=== PATIENT | female | born 1955 | race Caucasian/White ===

== ENCOUNTER 2018-05-21 08:07 | Outpatient (CLI) | payer MEDICARE, OTHER | END 2018-05-21 08:08 | disposition home or self-care (01) | LOC: BICMAMMO 08:07 | PROVIDERS: ATTEND Family Medicine | DX: Z12.31 Encounter for screening mammogram for malignant neoplasm of breast (principal); R92.1 Mammographic calcification found on diagnostic imaging of breast | CPT/HCPCS: 77063; 77067 ==

== ENCOUNTER 2019-05-25 07:36 | Outpatient (CLI) | payer MEDICARE, OTHER ==
--- NOTE | 2019-05-25 08:16 | MMO ---
Bilateral MAMMO Bilat Screen [facility]. CLINICAL HISTORY: Patient is 64 years old and is seen for screening. The patient has no family history of breast cancer. The patient has no personal history of cancer. VIEWS: The views performed were: bilateral craniocaudal with tomosynthesis and bilateral mediolateral oblique with tomosynthesis. FILMS COMPARED: The present examination has been compared to prior imaging studies performed at [facility] on 10/09/2016, and at [facility] on 05/21/2018. This study has been interpreted with the assistance of computer-aided detection. MAMMOGRAM FINDINGS: There are scattered fibroglandular densities. There are stable benign appearing calcifications seen in both breasts. There are no suspicious masses, suspicious calcifications, or new areas of architectural distortion. IMPRESSION: THERE IS NO MAMMOGRAPHIC EVIDENCE OF MALIGNANCY. A ROUTINE FOLLOW-UP MAMMOGRAM IN 1 YEAR IS RECOMMENDED. THE RESULTS OF THIS EXAM WERE SENT TO THE PATIENT. ACR BI-RADS Category 2 - Benign finding MAMMOGRAPHY NOTE: 1. A negative mammogram report should not delay a biopsy if a dominant of clinically suspicious mass is present. 2. Approximately 10% to 15% of breast cancers are not detected by mammography. 3. Adenosis and dense breasts may obscure an underlying neoplasm. Reported by: DAPHNE PACHECO MD Electonically Signed: [id number]
--- NOTE | 2019-05-25 08:30 | BD ---
Exam: Bilateral renal ultrasound HISTORY: Reevaluate hydronephrotic COMPARISON: None FINDINGS: Right kidney: Normal cortical echotexture. No hydronephrosis. Questionable nonobstructing 1.1 cm calc ulus in the lower pole. Right kidney measurements: 12.3 x 7.1 x 7.1 cm. Left kidney: Normal cortical echotexture. No hydronephrosis Left kidney measurements 12.3 x 7.3 x 6.1 cm. Urinary bladder: Normal mucosa. IMPRESSION: No hydronephrosis.
== END 2019-05-25 07:37 | disposition home or self-care (01) ==
LOC: BICMAMMO 07:36
PROVIDERS: ATTEND Family Medicine
DX: Z12.31 Encounter for screening mammogram for malignant neoplasm of breast (principal); Z13.820 Encounter for screening for osteoporosis; Z78.0 Asymptomatic menopausal state
CPT/HCPCS: 77063; 77067; 77080

== ENCOUNTER 2019-08-30 06:17 | Observation (INO) | payer MEDICARE, OTHER ==
[2019-08-30 06:48] LABS: #Basophils 0.1 thou/uL (0.0-0.2); #Eosinphils 0.1 thou/uL (0.0-0.7); #Lymphocytes 1.7 thou/uL (1.20-3.40); #Monocytes 0.5 thou/uL (0.11-0.59); #Neutrophils 3.5 thou/uL (1.40-6.50); %Basophils 1.4 % (0.0-1.0); %Eosinophils 2.5 % (0.0-10.0); %Lymphocytes 28.8 % (21.0-51.0); %Monocytes 8.2 % (0.0-10.0); %Neutrophils 59.2 % (42.0-75.0); Hemoglobin 13.6 g/dL (12.0-16.0); Mean Corpuscular HGB CONC 33.7 g/dL (32.0-36.0); Mean Corpuscular Hemoglobin 28.5 pg (27.0-31.0); Mean Corpuscular Volume 84.6 fL (78.0-98.0); Mean Platelet Volume 7.3 fL (7.4-10.4); Platelet Count 243 thou/uL (130-400); RBC Distribution Width 12.7 % (11.5-14.5); Red Blood Cell (RBC) Count 4.77 mill/uL (4.20-5.40)
[2019-08-30 07:03] LABS: ALT (SGPT) 14 U/L (8-55); AST (SGOT) 19 U/L (5-34); Albumin 3.9 g/dL (3.4-4.8); Alkaline Phosphatase 82 U/L (40-110); Anion Gap 13 mmol/L (10-20); BUN (Urea Nitrogen) 13 mg/dL (9.8-20.1); Bilirubin, Total 0.6 mg/dL (0.2-1.2); Calc. Creatinine Clearance 0 mL/min (70-130); Calcium 9.3 mg/dL (7.8-10.44); Carbon Dioxide 21 mmol/L (23-31); Chloride 109 mmol/L (98-107); Estimated GFR-MDRD 76; Globulin 3.2 g/dL (2.4-3.5); Glucose 98 mg/dL (80-115); Lipase 41 U/L (8-78); Potassium 3.6 mmol/L (3.5-5.1); Protein, Total 7.1 g/dL (6.0-8.3); Sodium 139 mmol/L (136-145)
[2019-08-30] MEDS ORDERED: Nitroglycerin 2% Ointment 1 INCH/1 GM Packet ONE (07:23)
--- NOTE | 2019-08-30 07:29 | RAD ---
Chest one view HISTORY: Chest pain. FINDINGS: No comparison. Cardiac silhouette is magnified by projection. Pulmonary vasculature is unremarkable. Mediastinum is midline. No lobar consolidation or evidence of pneumothorax. customer support advisor leads overlie the chest. IMPRESSION: No active cardiopulmonary abnormalities are demonstrated.
[2019-08-30] MEDS ORDERED: Dextrose 5 % And 0.9 % NaCl 1,000 ML IV SCH (09:00)
[2019-08-30 10:07] VITALS: BP 137/65; TEMP 98.2; BMI 34.7
[2019-08-30] MEDS ORDERED: Guaifenesin DM 100-10/5 ML UDCUP PO PRN (10:13)
[2019-08-30] MEDS ORDERED: Bisacodyl 10 MG SUPP PR PRN (10:13)
[2019-08-30] MEDS ORDERED: Senokot S 8.6-50 MG TAB PO PRN (10:13)
[2019-08-30] MEDS ORDERED: Ondansetron PF 4 MG/2 ML Vial IVP PRN (10:13)
[2019-08-30] MEDS ORDERED: Acetaminophen 325 MG TAB PO PRN (10:13)
[2019-08-30] MEDS ORDERED: Lorazepam 1 MG TAB PO PRN (11:34)
[2019-08-30] MEDS ORDERED: Lorazepam 2 MG/ML VIAL SLOW IVP SCH (11:45)
[2019-08-30] MEDS ORDERED: ADENOSINE 60 MG/20 ML VIAL ONE (12:00)
--- NOTE | 2019-08-30 12:45 | NM ---
Exam: Nuclear medicine cardiac SPECT with EF and wall motion, stress only HISTORY: Chest pain Patient is injected with 31.1 mCi technetium 99m sestamibi intravenously for stress images. This is a adenosine sestamibi study. Multiple SPECT images including short axis, vertical long axis, and horizontal long axis demonstrates no evidence for infarct or ischemia. LHR 0.39 EDV 57 mL Ejection fraction 85% Wall motion is normal. IMPRESSION: Unremarkable stress only cardiac SPECT with EF and wall motion.
--- NOTE | 2019-08-30 16:36 | SS ---
DATE OF ADMISSION: 08/30/2019 DATE OF DISCHARGE: 08/30/2019 REASON FOR ADMISSION: Chest pain. HISTORY OF PRESENT ILLNESS: The patient gives history of waking up around 5:15 a.m. and was trying to watch television. She was also trying to play a game on her cellphone when she suddenly developed retrosternal chest pain. This was 10/10 in intensity with no radiation. The pain was unrelenting for nearly 20 minutes. EMS was summoned and they gave her nitroglycerin, which seemed to ease her, and by the time, she arrived in ER emergency room, the pain completely resolved. She has had some postnasal discharge, which is not new for her due to chronic sinusitis. No complaints of palpitations, PND, or orthopnea. No prior cardiac workup including stress test done in the past. No history of fever, cough, or expectoration. PAST MEDICAL AND SURGICAL HISTORY: History of primary biliary cholangitis and follows up with Dr. Brooks, dyslipidemia, osteopenia, tonsillectomy, prior history of dilatation and curettage, cholecystectomy, and obesity. Prior colonoscopy showed no malignancy, but had mild hemorrhoids. CURRENT MEDICATION: 1. Ursodiol 1200 mg p.o. nightly. 2. Crestor 20 mg p.o. nightly. 3. Vascepa two capsules p.o. twice daily. 4. Calcium carbonate 600 mg twice daily. 5. Lumigan eye drops as before. 6. Alendronate 35 mg p.o. once weekly. ALLERGIES: ALLERGIC TO ASPIRIN, WHICH CAUSES HIVES. PERSONAL HISTORY: Does not abuse alcohol or drugs. No history of smoking. She lives with her and is retired. FAMILY HISTORY: Mother of natural causes in her 90s. Father in his 70s and might have had massive MN, which she does not know for sure. CODE STATUS: Full. Power of disability attorney is her . REVIEW OF SYSTEMS: CONSTITUTIONAL: Negative for weight loss or gain, ability to conduct usual activities. SKIN: Negative for rash, itching. EYES: Negative for double vision, pain. ENT/MOUTH: Negative for nose bleeding, neck stiffness, pain, tenderness. CARDIOVASCULAR: Negative for palpitations, dyspnea on exertion, orthopnea. RESPIRATORY: Negative for shortness of breath, wheezing, cough, hemoptysis, fever or night sweats. GASTROINTESTINAL: Negative for poor appetite, abdominal pain, heartburn, nausea, vomiting, constipation, or diarrhea. GENITOURINARY: Negative for urgency, frequency, dysuria, nocturia. MUSCULOSKELETAL: Negative for pain, swelling. NEUROLOGIC/PSYCHIATRIC: Negative for anxiety, depression. ALLERGY/IMMUNOLOGIC: Negative for skin rash, bleeding tendency. PHYSICAL EXAMINATION: GENERAL: The patient is a 64-year-old female, who is currently not in any acute distress. VITAL SIGNS: Blood pressure 148/86, pulse 74 per minute, respiratory rate 20 per minute, temperature 98.4 degrees Fahrenheit, and saturating 97% on room air. NECK: Supple. No elevated JVD. HEENT: Eyes; extraocular muscles intact. Pupils reacting to light. Oral cavity, mucous membranes are moist. No exudates or congestion. CARDIOVASCULAR SYSTEM: S1-S2 heard. Regular rhythm. RESPIRATORY SYSTEM: Air entry 2+ bilateral. No rales or rhonchi. ABDOMEN: Soft. Bowel sounds heard. No tenderness, rigidity, or guarding. EXTREMITIES: No peripheral edema or calf tenderness. VASCULAR SYSTEM: Peripheral pulses 2+ bilateral. No ischemic ulcerations or gangrene. CENTRAL NERVOUS SYSTEM: No gross focal deficits noted. The patient is alert, awake, and oriented well. PSYCHIATRIC SYSTEM: The patient's mood is euthymic. No hallucinations or delusions. LABORATORY DATA: EKG done shows sinus rhythm at 66 beats per minute. No gross ST-T wave changes. White count of 6, H and H of 13 and 40, and platelet count 243 with 59% neutrophils. Electrolytes stable. BUN 13 and creatinine 0.7. Troponin x2 negative. Liver enzymes within normal limits. Albumin is 3.9. Lipase is 41. IMAGING STUDIES: Chest x-ray done shows no acute cardiopulmonary process. Nuclear stress test done showed normal ejection fraction and wall motion, stress only, nuclear stress test was unremarkable. There was no evidence of infarct or ischemia. Ejection fraction of around 85%. CLINICAL IMPRESSION AND PLAN: The patient will be shortly discharged home. The patient initially came in with complaints of chest pain. She has had 2 sets of troponin and a nuclear stress test done, all of which has not shown any signs of ischemia. Her chest x-ray does not show any signs of infiltrate. She will be given Protonix 40 mg daily for a total of 2 weeks. She needs to follow up with her primary care physician, Dr. Tovar, in a week. She is otherwise hemodynamically stable and will be shortly discharged home. Please note, this is a same day observation and discharge summary. Job ID: [id number]
[2019-08-30] MEDS ORDERED: Icosapent Ethyl 1 GM CAPSULE PO SCH (21:00)
[2019-08-30] MEDS ORDERED: Rosuvastatin 20 MG TAB PO SCH (21:00)
[2019-08-30] MEDS ORDERED: Ursodiol 300 MG CAP PO SCH (21:00)
[2019-08-30] MEDS ORDERED: Non-Formulary Item 1 EACH (Bimatoprost [Lumigan] 1 DROP) EA EYE SCH (21:00)
[2019-08-31] MEDS ORDERED: Enoxaparin Sodium 40 MG/0.4 ML SYRINGE SC SCH (09:00)
--- NOTE | 2019-09-05 13:14 | EKG ---
Test Reason : Blood Pressure : / mmHG Vent. Rate : 066 BPM Atrial Rate : 066 BPM P-R Int : 230 ms QRS Dur : 076 ms QT Int : 410 ms P-R-T Axes : 031 -29 007 degrees QTc Int : 429 ms Sinus rhythm with 1st degree A-V block Moderate voltage criteria for LVH, may be normal variant Borderline ECG Confirmed by ISAÍAS VORA ([id number]), editor newspaper [place] TRIVEDI ([id number]) on 09/05/2019 1:13:32 PM Referred By: Confirmed By:ISAÍAS VORA
== END 2019-08-30 14:10 | disposition home or self-care (01) ==
LOC: ERS 06:17 → 2SW 07:29
PROVIDERS: ADMIT Internal Medicine; ATTEND Internal Medicine
DX: R07.9 Chest pain, unspecified (principal); E78.5 Hyperlipidemia, unspecified; M85.80 Other specified disorders of bone density and structure, unspecified site; Z90.89 Acquired absence of other organs; Z98.890 Other specified postprocedural states; Z79.899 Other long term (current) drug therapy; Z88.6 Allergy status to analgesic agent
CPT/HCPCS: 71045; 78452; 80053; 83690; 84484 ×2; 85025; 93005; 93017; 94760; 96374; 99285; A9500; G0378 ×2; 36415; J0153; J2060

== ENCOUNTER 2019-12-04 23:07 | Emergency (ER) | payer MEDICARE, OTHER ==
[2019-12-04 23:49] LABS: #Basophils 0.1 thou/uL (0.0-0.2); #Eosinphils 0.1 thou/uL (0.0-0.7); #Lymphocytes 2.7 thou/uL (1.20-3.40); #Monocytes 0.9 thou/uL (0.11-0.59); #Neutrophils 4.2 thou/uL (1.40-6.50); %Basophils 0.8 % (0.0-1.0); %Eosinophils 1.4 % (0.0-10.0); %Lymphocytes 33.7 % (21.0-51.0); %Monocytes 11.1 % (0.0-10.0); %Neutrophils 52.9 % (42.0-75.0); Hemoglobin 13.4 g/dL (12.0-16.0); Mean Corpuscular Hemoglobin 27.2 pg (27.0-31.0); Mean Corpuscular Volume 84.9 fL (78.0-98.0); Mean Platelet Volume 7.8 fL (7.4-10.4); Platelet Count 233 thou/uL (130-400); RBC Distribution Width 13.5 % (11.5-14.5); Red Blood Cell (RBC) Count 4.93 mill/uL (4.20-5.40)
[2019-12-05 00:14] LABS: ALT (SGPT) 20 U/L (8-55); AST (SGOT) 29 U/L (5-34); Albumin 3.9 g/dL (3.4-4.8); Alkaline Phosphatase 81 U/L (40-110); Anion Gap 16 mmol/L (10-20); BUN (Urea Nitrogen) 13 mg/dL (9.8-20.1); Bilirubin, Total 0.6 mg/dL (0.2-1.2); Calc. Creatinine Clearance 0 mL/min (70-130); Carbon Dioxide 19 mmol/L (23-31); Chloride 108 mmol/L (98-107); Estimated GFR-MDRD 71; Globulin 3.4 g/dL (2.4-3.5); Glucose 125 mg/dL (80-115); Potassium 4.1 mmol/L (3.5-5.1); Protein, Total 7.3 g/dL (6.0-8.3); Sodium 139 mmol/L (136-145)
[2019-12-05] MEDS ORDERED: Lidocaine Viscous Sol 2% 15 ml UD Cup ONE (00:50)
[2019-12-05] MEDS ORDERED: Mag-Al 1200 mg/1200 mg/30 ML UDCUP ONE (00:50)
--- NOTE | 2019-12-05 07:36 | RAD ---
PORTABLE CHEST: Date: 12/04/2019 PROVIDED CLINICAL HISTORY: Chest pain. FINDINGS: Comparison with 08/30/2019. The cardiac and mediastinal silhouette is unchanged in appearance. No focal consolidation, pleural fl uid, or pneumothorax apparent. IMPRESSION: No evidence for an acute cardiopulmonary process. POS: AYESHA
--- NOTE | 2019-12-05 15:17 | EKG ---
Test Reason : EMERGENCY Blood Pressure : / mmHG Vent. Rate : 068 BPM Atrial Rate : 068 BPM P-R Int : 312 ms QRS Dur : 076 ms QT Int : 412 ms P-R-T Axes : 033 -27 002 degrees QTc Int : 438 ms Sinus rhythm with 1st degree A-V block Minimal voltage criteria for LVH, may be normal variant Borderline ECG Confirmed by KARMEN HAWLEY M.D. ([id number]), purchasing expeditor [place] TRIVEDI ([id number]) on 12/05/2019 3:17:01 PM Referred By: Confirmed By:KARMEN HAWLEY M.D.
== END 2019-12-05 02:30 | disposition home or self-care (01) ==
LOC: ERS 23:07
DX: R07.9 Chest pain, unspecified (principal)
CPT/HCPCS: 36415; 71045; 80053; 84484; 85025; 93005

== ENCOUNTER 2020-01-20 02:03 | Emergency (ER) | payer MEDICARE, OTHER ==
[2020-01-20 02:30] LABS: #Eosinphils 0.1 thou/uL (0.0-0.7); #Lymphocytes 2.5 thou/uL (1.20-3.40); #Monocytes 0.6 thou/uL (0.11-0.59); #Neutrophils 4.7 thou/uL (1.40-6.50); %Basophils 0.5 % (0.0-1.0); %Eosinophils 1.3 % (0.0-10.0); %Monocytes 7.8 % (0.0-10.0); %Neutrophils 59.4 % (42.0-75.0); Hemoglobin 13.7 g/dL (12.0-16.0); Mean Corpuscular HGB CONC 32.8 g/dL (32.0-36.0); Mean Corpuscular Hemoglobin 27.6 pg (27.0-31.0); Mean Platelet Volume 7.2 fL (7.4-10.4); Platelet Count 261 thou/uL (130-400); RBC Distribution Width 13.3 % (11.5-14.5); Red Blood Cell (RBC) Count 4.97 mill/uL (4.20-5.40); White Blood Cell (WBC) Count 7.9 thou/uL (4.8-10.8)
[2020-01-20 02:50] LABS: ALT (SGPT) 17 U/L (8-55); AST (SGOT) 20 U/L (5-34); Albumin 4.1 g/dL (3.4-4.8); Alkaline Phosphatase 96 U/L (40-110); Anion Gap 14 mmol/L (10-20); BUN (Urea Nitrogen) 14 mg/dL (9.8-20.1); Bilirubin, Total 0.8 mg/dL (0.2-1.2); Calc. Creatinine Clearance 0 mL/min (70-130); Calcium 10.5 mg/dL (7.8-10.44); Carbon Dioxide 24 mmol/L (23-31); Chloride 106 mmol/L (98-107); Estimated GFR-MDRD 64; Globulin 3.6 g/dL (2.4-3.5); Glucose 121 mg/dL (80-115); Lipase 40 U/L (8-78); Potassium 3.5 mmol/L (3.5-5.1); Protein, Total 7.7 g/dL (6.0-8.3); Sodium 140 mmol/L (136-145)
[2020-01-20 04:22] LABS: Troponin I 0.019 ng/mL (< 0.028)
[2020-01-20 05:30] LABS: Troponin I 0.016 ng/mL (< 0.028)
--- NOTE | 2020-01-20 07:43 | RAD ---
EXAM: Single view of the chest HISTORY: Chest pain COMPARISON: 12/04/2019 FINDINGS: Single view of the chest shows a normal sized cardiomediastinal silhouette. There is no gonsalo dence of consolidation, mass, or pleural effusion. The bones are unremarkable IMPRESSION: No evidence of acute cardiopulmonary disease
== END 2020-01-20 05:47 | disposition home or self-care (01) ==
LOC: ERS 02:03
DX: R07.89 Other chest pain (principal); E83.52 Hypercalcemia; K21.9 Gastro-esophageal reflux disease without esophagitis; Z79.899 Other long term (current) drug therapy
CPT/HCPCS: 36415; 71045; 80053; 83690; 84484; 85025; 93005

== ENCOUNTER 2020-11-27 08:59 | Emergency (ER) | payer MEDICARE, OTHER ==
[2020-11-27] MEDS ORDERED: Cyclobenzaprine 10 MG TAB ONE (09:40)
== END 2020-11-27 09:45 | disposition home or self-care (01) ==
LOC: ERS 08:59
DX: M54.5 Low back pain (principal); K21.9 Gastro-esophageal reflux disease without esophagitis; Z79.899 Other long term (current) drug therapy
CPT/HCPCS: 99283

== ENCOUNTER 2021-07-04 08:20 | Outpatient (CLI) | payer MEDICARE, OTHER | END 2021-07-04 08:21 | disposition home or self-care (01) | LOC: BICMAMMO 08:20 | PROVIDERS: ATTEND Family Medicine | DX: Z12.31 Encounter for screening mammogram for malignant neoplasm of breast (principal); N95.9 Unspecified menopausal and perimenopausal disorder; Z13.820 Encounter for screening for osteoporosis; M85.89 Other specified disorders of bone density and structure, multiple sites | CPT/HCPCS: 77063; 77067; 77080 ==

== ENCOUNTER 2022-03-26 22:30 | Inpatient (IN) | payer MEDICARE, OTHER ==
[~2022-03-26 22:30] MED LIST: Iopamidol 370 76% 100 ML VIAL ONE
[2022-03-26 23:12] LABS: #Basophils 0.1 thou/uL (0.0-0.2); #Eosinphils 0.2 thou/uL (0.0-0.7); #Lymphocytes 2.2 thou/uL (1.20-3.40); #Neutrophils 7.6 thou/uL (1.40-6.50); %Basophils 0.5 % (0.0-1.0); %Eosinophils 1.6 % (0.0-10.0); %Monocytes 9.1 % (0.0-10.0); %Neutrophils 68.8 % (42.0-75.0); Hemoglobin 13.7 g/dL (12.0-16.0); Mean Corpuscular HGB CONC 32.7 g/dL (32.0-36.0); Mean Corpuscular Hemoglobin 28.4 pg (27.0-31.0); Mean Corpuscular Volume 86.9 fL (78.0-98.0); Mean Platelet Volume 7.4 fL (7.4-10.4); Platelet Count 279 thou/uL (130-400); RBC Distribution Width 13.4 % (11.5-14.5); Red Blood Cell (RBC) Count 4.81 mill/uL (4.20-5.40)
[2022-03-26 23:26] LABS: ALT (SGPT) 16 U/L (8-55); AST (SGOT) 20 U/L (5-34); Alkaline Phosphatase 98 U/L (40-110); Anion Gap 13 mmol/L (10-20); BUN (Urea Nitrogen) 14 mg/dL (9.8-20.1); Bilirubin, Total 0.8 mg/dL (0.2-1.2); Calc. Creatinine Clearance 0 mL/min (70-130); Carbon Dioxide 22 mmol/L (23-31); Chloride 107 mmol/L (98-107); Estimated GFR 89; Globulin 3.2 g/dL (2.4-3.5); Glucose 150 mg/dL (80-115); Potassium 3.5 mmol/L (3.5-5.1); Protein, Total 7.2 g/dL (5.8-8.1); Sodium 138 mmol/L (136-145)
[2022-03-27] MEDS ORDERED: Ondansetron PF 4 MG/2 ML Vial ONE (01:15)
[2022-03-27 03:14] LABS: Troponin I 0.013 ng/mL (< 0.028)
[2022-03-27] MEDS ORDERED: Ondansetron ODT 4 MG TAB PO PRN (03:47)
[2022-03-27] MEDS ORDERED: Acetaminophen 650 MG Suppository PR PRN (03:47)
[2022-03-27] MEDS ORDERED: Ondansetron PF 4 MG/2 ML Vial IVP PRN (03:47)
[2022-03-27] MEDS ORDERED: Acetaminophen 325 MG TAB PO PRN (03:47)
[2022-03-27 04:00] LABS: SARS-CoV-2 NAA Rapid Test Not Detected (NotDetected)
[2022-03-27] MEDS ORDERED: Electrolyte Replacement Protocol 1 EACH FS SCH (04:15)
[2022-03-27 04:29] LABS: Magnesium 2.1 mg/dL (1.6-2.6)
[2022-03-27 06:16] LABS: Bilirubin Negative (Negative); Blood, Urine Negative (Negative); Clarity Turbid (Clear); Glucose, Urine (Dipstick) Normal (Negative); Ketone, Urine Negative (Negative); Leukocyte Negative Leu/uL (Negative); Nitrite 1+ (Negative); Protein, Urine (Dipstick) Negative (Neg-Trace); RBC/HPF 0-3 HPF (0-3); Specific Gravity, Urine 1.039 (1.002-1.036); Squamous Epithelial 0-3 HPF (0-3); Urobilinogen Normal mg/dL (Less than 2)
[2022-03-27 06:17] LABS: Bacteria/HPF 3+ HPF (None Seen)
[2022-03-27 07:47] LABS: Troponin I Less than 0.010 ng/mL (< 0.028)
[2022-03-27] MEDS ORDERED: Potassium Chloride 20 MEQ TAB PO SCH (08:00)
[2022-03-27] MEDS ORDERED: Potassium Chloride 20 MEQ TAB ONE (08:32)
[2022-03-27] MEDS ORDERED: cefTRIAXone\\ROCEPHIN 1 GM VIAL ONE (08:32)
[2022-03-27] MEDS: cefTRIAXone\\ROCEPHIN 1 GM in Sodium Chloride 0.9% 100 ML IVPB SCH (08:41)
[2022-03-27 10:17] LABS: #Eosinphils 0.2 thou/uL (0.0-0.7); #Lymphocytes 1.5 thou/uL (1.20-3.40); #Monocytes 0.5 thou/uL (0.11-0.59); #Neutrophils 8.4 thou/uL (1.40-6.50); %Basophils 0.2 % (0.0-1.0); %Eosinophils 1.4 % (0.0-10.0); %Lymphocytes 14.2 % (21.0-51.0); %Monocytes 4.4 % (0.0-10.0); %Neutrophils 79.8 % (42.0-75.0); Hemoglobin 14.8 g/dL (12.0-16.0); Mean Corpuscular HGB CONC 32.4 g/dL (32.0-36.0); Mean Corpuscular Volume 86.6 fL (78.0-98.0); Mean Platelet Volume 7.5 fL (7.4-10.4); Platelet Count 239 thou/uL (130-400); RBC Distribution Width 13.4 % (11.5-14.5); Red Blood Cell (RBC) Count 5.29 mill/uL (4.20-5.40); White Blood Cell (WBC) Count 10.5 thou/uL (4.8-10.8)
[2022-03-27 16:13] VITALS: BMI 34.4
[2022-03-27] MEDS: Ursodiol 300 MG CAP PO SCH (18:01)
[2022-03-27] MEDS: Rosuvastatin 20 MG TAB PO SCH (20:24)
[2022-03-28 05:18] LABS: Anion Gap 11 mmol/L (10-20); BUN (Urea Nitrogen) 13 mg/dL (9.8-20.1); Calc. Creatinine Clearance 109 mL/min (70-130); Calcium 9.5 mg/dL (7.8-10.44); Carbon Dioxide 23 mmol/L (23-31); Chloride 109 mmol/L (98-107); Estimated GFR 83; Glucose 95 mg/dL (80-115); Sodium 139 mmol/L (136-145)
[2022-03-28 05:27] LABS: #Basophils 0.1 thou/uL (0.0-0.2); #Eosinphils 0.1 thou/uL (0.0-0.7); #Lymphocytes 1.9 thou/uL (1.20-3.40); #Monocytes 0.4 thou/uL (0.11-0.59); #Neutrophils 3.3 thou/uL (1.40-6.50); %Basophils 0.9 % (0.0-1.0); %Eosinophils 2.2 % (0.0-10.0); %Lymphocytes 32.4 % (21.0-51.0); %Neutrophils 57.6 % (42.0-75.0); Mean Corpuscular HGB CONC 32.3 g/dL (32.0-36.0); Mean Corpuscular Hemoglobin 28.4 pg (27.0-31.0); Mean Corpuscular Volume 87.9 fL (78.0-98.0); Mean Platelet Volume 7.3 fL (7.4-10.4); Platelet Count 226 thou/uL (130-400); RBC Distribution Width 13.4 % (11.5-14.5); Red Blood Cell (RBC) Count 4.59 mill/uL (4.20-5.40); White Blood Cell (WBC) Count 5.8 thou/uL (4.8-10.8)
[2022-03-28] MEDS: cefTRIAXone\\ROCEPHIN 1 GM in Sodium Chloride 0.9% 100 ML IVPB SCH (08:29)
[2022-03-28] MEDS: Calcium Carbonate 600 MG + Vit D TAB PO SCH (08:29)
[2022-03-28] MEDS: Sodium Chloride 0.9% 1,000 ML IV SCH (18:34)
[2022-03-28] MEDS: Ursodiol 300 MG CAP PO SCH (18:34)
[2022-03-28] MEDS ORDERED: Enoxaparin Sodium 40 MG/0.4 ML SYRINGE SC SCH (21:00)
[2022-03-28] MEDS: Famotidine 20 MG TAB PO SCH (22:09)
[2022-03-28] MEDS: Rosuvastatin 20 MG TAB PO SCH (22:09)
[2022-03-29 05:21] LABS: #Eosinphils 0.2 thou/uL (0.0-0.7); #Lymphocytes 2.2 thou/uL (1.20-3.40); #Monocytes 0.5 thou/uL (0.11-0.59); #Neutrophils 2.7 thou/uL (1.40-6.50); %Basophils 0.8 % (0.0-1.0); %Eosinophils 2.7 % (0.0-10.0); %Lymphocytes 39.6 % (21.0-51.0); %Monocytes 8.4 % (0.0-10.0); %Neutrophils 48.5 % (42.0-75.0); Mean Corpuscular HGB CONC 32.6 g/dL (32.0-36.0); Mean Corpuscular Hemoglobin 28.4 pg (27.0-31.0); Mean Platelet Volume 7.3 fL (7.4-10.4); Platelet Count 227 thou/uL (130-400); RBC Distribution Width 13.3 % (11.5-14.5); Red Blood Cell (RBC) Count 4.57 mill/uL (4.20-5.40); White Blood Cell (WBC) Count 5.5 thou/uL (4.8-10.8)
[2022-03-29 05:32] LABS: ALT (SGPT) 11 U/L (8-55); AST (SGOT) 18 U/L (5-34); Albumin 3.8 g/dL (3.4-4.8); Alkaline Phosphatase 88 U/L (40-110); Anion Gap 11 mmol/L (10-20); BUN (Urea Nitrogen) 14 mg/dL (9.8-20.1); Bilirubin, Total 0.7 mg/dL (0.2-1.2); Calc. Creatinine Clearance 116 mL/min (70-130); Calcium 9.5 mg/dL (7.8-10.44); Carbon Dioxide 22 mmol/L (23-31); Chloride 109 mmol/L (98-107); Estimated GFR 90; Globulin 3.2 g/dL (2.4-3.5); Glucose 90 mg/dL (80-115); Magnesium 2.2 mg/dL (1.6-2.6); Phosphorus 3.6 mg/dL (2.3-4.7); Potassium 3.6 mmol/L (3.5-5.1); Sodium 138 mmol/L (136-145)
[2022-03-29] MEDS: cefTRIAXone\\ROCEPHIN 1 GM in Sodium Chloride 0.9% 100 ML IVPB SCH (08:54)
[2022-03-29] MEDS: Calcium Carbonate 600 MG + Vit D TAB PO SCH (08:54)
[2022-03-29] MEDS: Famotidine 20 MG TAB PO SCH (08:54)
[2022-03-29 11:44] VITALS: TEMP 97.7
[2022-03-29 11:46] VITALS: BP 107/54
[2022-03-29] MEDS: Sodium Chloride 0.9% 1,000 ML IV SCH (12:27)
== END 2022-03-29 12:50 | disposition home or self-care (01) | DRG 312 ==
LOC: ERS 22:30 → ERHOLD 03-27 01:54 → 2SW 03-27 15:29 → OBSVTOIN 03-29 11:56
PROVIDERS: ADMIT Student in an Organized Health Care Education/Training Program; ATTEND Internal Medicine
DX: R55 Syncope and collapse (principal); N39.0 Urinary tract infection, site not specified; R00.1 Bradycardia, unspecified; Z20.822 Contact with and (suspected) exposure to COVID-19; K21.9 Gastro-esophageal reflux disease without esophagitis; I44.0 Atrioventricular block, first degree; K74.3 Primary biliary cirrhosis; K59.00 Constipation, unspecified; E78.5 Hyperlipidemia, unspecified; Z88.6 Allergy status to analgesic agent; Z79.899 Other long term (current) drug therapy; Z90.89 Acquired absence of other organs
CPT/HCPCS: 36415; 70450; 71045; 74177; 80048; 80053; 81003; 81015; 83735; 84100; 84484; 85025; 93005; 93306; 93880; 96361; 96374; 96375; 96376; G0378; J0696; J2405; J3490; J7050; Q9967; U0002

== ENCOUNTER 2024-06-20 10:19 | Observation (INO) | payer MEDICARE, OTHER ==
[2024-06-20 10:44] LABS: #Basophils 0.06 10x3/uL (0.0-0.2); %Basophils 0.8 % (0.0-1.0); %Eosinophils 1.6 % (0.0-10.0); %Lymphocytes 24.1 % (21.0-51.0); Hematocrit 38.8 % (36.0-47.0); Hemoglobin 12.9 g/dL (12.0-16.0); Mean Corpuscular HGB CONC 33.2 g/dL (32.0-36.0); Mean Corpuscular Hemoglobin 27.1 pg (27.0-31.0); Mean Corpuscular Volume 81.5 fL (78.0-98.0); Mean Platelet Volume 9.3 fL (7.4-10.4); Platelet Count 292 10x3/uL (130-400); RBC Distribution Width 14.3 % (11.5-14.5); Red Blood Cell (RBC) Count 4.76 mill/uL (4.20-5.40)
[2024-06-20 11:08] LABS: ALT (SGPT) 19 U/L (8-55); AST (SGOT) 25 U/L (5-34); Albumin 3.5 g/dL (3.4-4.8); Alkaline Phosphatase 116 U/L (40-110); Anion Gap 14 mmol/L (10-20); BUN (Urea Nitrogen) 12 mg/dL (9.8-20.1); Bilirubin, Total 0.7 mg/dL (0.2-1.2); Calc. Creatinine Clearance 0 mL/min (70-130); Calcium 9.2 mg/dL (7.8-10.44); Carbon Dioxide 18 mmol/L (23-31); Chloride 109 mmol/L (98-107); Estimated GFR 89; Globulin 3.7 g/dL (2.4-3.5); Glucose 128 mg/dL (83-110); Magnesium 2.3 mg/dL (1.6-2.6); Potassium 3.5 mmol/L (3.5-5.1); Protein, Total 7.2 g/dL (5.8-8.1); Sodium 137 mmol/L (136-145)
[2024-06-20 11:32] LABS: Troponin I Less than 0.010 ng/mL (< 0.028)
[2024-06-20] MEDS ORDERED: Acetaminophen 325 MG TAB PO PRN (13:24)
[2024-06-20] MEDS ORDERED: Senokot S 8.6-50 MG TAB PO PRN (13:24)
[2024-06-20 14:42] VITALS: BMI 34.7
[2024-06-20 18:57] LABS: Bacteria/HPF 3+ HPF (None Seen); Bilirubin Negative (Negative); Blood, Urine Negative (Negative); CAUTI Indications for Culture Alt mental st,lethar; Clarity Turbid (Clear); Glucose, Urine (Dipstick) Normal (Negative); Ketone, Urine Negative (Negative); Leukocyte 250 Leu/uL (Negative); Nitrite Negative (Negative); Protein, Urine (Dipstick) 10 mg/dL (Neg-Trace); RBC/HPF 0-3 HPF (0-3); Specific Gravity, Urine 1.011 (1.002-1.036); Squamous Epithelial 0-3 HPF (0-3)
[2024-06-20 19:08] LABS: Urine Culture Reflex No No
[2024-06-20] MEDS: DorzolamidE/Timolol 2%/0.5% Ophth Soln 10 ml Bottle EA EYE SCH (19:54)
[2024-06-20] MEDS: Ursodiol 300 MG CAP PO SCH (19:55)
[2024-06-20] MEDS: LATANOPROSTENE BUNOD 0.024% EA EYE SCH (19:55)
[2024-06-20] MEDS: Rosuvastatin 20 MG TAB PO SCH (19:56)
[2024-06-20] MEDS: Famotidine 20 MG TAB PO SCH (19:56)
[2024-06-21] MEDS: Enoxaparin 40 MG (0.4 mL) SYRINGE SC SCH (08:38)
[2024-06-21 15:42] VITALS: BP 125/65; TEMP 97.5
== END 2024-06-21 16:20 | disposition home or self-care (01) ==
LOC: ERS 10:19 → 2NO 12:51
PROVIDERS: ADMIT Family Medicine; ATTEND Internal Medicine
DX: K74.3 Primary biliary cirrhosis (principal); M85.80 Other specified disorders of bone density and structure, unspecified site; K21.9 Gastro-esophageal reflux disease without esophagitis; E78.5 Hyperlipidemia, unspecified; Z90.49 Acquired absence of other specified parts of digestive tract; Z90.89 Acquired absence of other organs; Z79.82 Long term (current) use of aspirin
CPT/HCPCS: 71045; 80053; 81001; 83735; 83880; 84484; 85025; 93005; 94760; 96372; 99285; G0378 ×3; J1650; 36415